=== PATIENT | female | born 1970 | race Caucasian/White ===

== ENCOUNTER → 2019-05-14 | Outpatient (CLI) | payer BC ==
--- NOTE | 2019-05-14 15:27 | RAD ---
Limited abdominal ultrasound 05/14/2019 INDICATION: Right upper quadrant pain. COMPARISON STUDY: None FINDINGS: Limited visualization of the pancreas is unremarkable. Limited visualization of the aorta and IVC is unremarkable. Cholelithiasis is noted within the gallbladder. The gallbladder wall thickened measuring 5-6 mm in diameter. Sonographic Bryant sign is positive per technologist. The liver is diffusely echogenic. The liver is normal in size measuring 14 cm longitudinally. Findings may reflect hepatic steatosis. The common bile duct is nondilated measuring 3 mm in diameter. The right kidney is abnormal in morphology with increased echogenicity within the renal medulla. There is a shadowing stone hyperechoic focus in the inferior right kidney measuring 9 mm in diameter which may represent a small nonobstructing stone. The left kidney also demonstrates hyperechoic medulla. The kidneys are normal in size measuring 10.5 cm in length on the right and 11.3 cm in length on the left. No hydronephrosis or nephrolithiasis is identified. IMPRESSION: 1. Cholelithiasis, with thickening of the gallbladder, and a positive sonographic Bryant's sign according to the technologist. Findings concerning for acute calculus cholecystitis. 2. Increased echogenicity of the bilateral renal medulla. The appearance is nonspecific but can be seen with nephrocalcinosis, with other more rare etiologies including sickle-cell anemia, or infection. 3. Increased echogenicity of the liver. Hepatic steatosis is possible. 4. 9 mm nonobstructing calculus, inferior right kidney. Findings called to the ordering clinician's office at 3:20 PM Electronically signed by: Arian Marti MD (05/14/2019 3:24 PM) [id number]
== END | disposition home or self-care (01) ==
LOC: US 12:54
PROVIDERS: ATTEND Physician Assistant Medical
DX: K80.00 Calculus of gallbladder with acute cholecystitis without obstruction (principal); E83.59 Other disorders of calcium metabolism; N29 Other disorders of kidney and ureter in diseases classified elsewhere
CPT/HCPCS: 76705

== ENCOUNTER → 2020-06-12 | Outpatient (CLI) | payer BC ==
--- NOTE | 2020-06-12 08:43 | RAD ---
INDICATION: Reason: RIGHT FLANK PAIN / Spl. Instructions: / History: COMPARISON: None. TECHNIQUE: Axial CT images obtained through the abdomen and pelvis without contrast. Limited assessment of solid organ structures and vasculature secondary to lack of intravenous contrast.. One or more of the following individualized dose reduction techniques were utilized for this examination: 1. Automated exposure control; 2. Adjustment of the mA and/or kV according to patient size; 3. Use of iterative reconstruction technique. FINDINGS: Linear nodular opacity at right lung base could be atelectasis. Abdominal aorta is not aneurysmal. No intrahepatic bile duct dilation. Postcholecystectomy changes. No peripancreatic fluid collection. Spleen unremarkable. Low-density left adrenal nodule. 9 mm nonobstructive left renal stone. 9 mm right renal stone. Urinary bladder largely decompressed. Prominence of the right renal pelvis with adjacent edema to the fat. Calcifications at the bilateral kidneys which can be seen with medullary nephrocalcinosis. Small fat-containing umbilical hernia. No periappendiceal inflammatory changes. No dilated loops of bowel to suggest obstruction. Degenerative changes of the spine with multilevel central canal and neural foraminal stenosis. Degenerative changes the right hip. IMPRESSION: * Prominence of the right renal pelvis with adjacent edema to the fat. Differential considerations include either intermittent obstruction from the patient's large right renal pelvis stone or infectious etiology from pyelitis. There is also a left-sided renal stone. * No evidence of bowel obstruction or appendicitis. Electronically signed by: Brody Ritter MD (06/12/2020 8:41 AM) [id number]
== END | disposition home or self-care (01) ==
LOC: CT 07:36
PROVIDERS: ATTEND Physician Assistant Medical
DX: N20.0 Calculus of kidney (principal); K42.9 Umbilical hernia without obstruction or gangrene; N29 Other disorders of kidney and ureter in diseases classified elsewhere; M16.11 Unilateral primary osteoarthritis, right hip; M47.9 Spondylosis, unspecified; M48.00 Spinal stenosis, site unspecified
CPT/HCPCS: 74176

== ENCOUNTER → 2022-01-21 | Outpatient (CLI) | payer BC ==
--- NOTE | 2022-01-21 15:36 | RAD ---
EXAM: ULTRASOUND SOFT TISSUE NECK CLINICAL HISTORY: Reason: NECK FULLNESS / Spl. Instructions: / History: COMPARISON: None available. TECHNIQUE: Ultrasound examination of the thyroid gland was performed FINDINGS: Sonographic evaluation of the thyroid gland was performed and evaluated using ACR TI-RADS criteria. The right thyroid lobe measures 3.5 x 1.2 x 1.1 cm. The left thyroid lobe measures 3.8 x 1.1 x 1.4 cm . The isthmus measures 0.2 cm. Thyroid parenchyma is mildly heterogeneous. Nodule #1: Location: Inferior right thyroid lobe Size: 0.4 x 0.4 x 0.3 cm Composition: Solid Echogenicity: Slightly hypoechoic Margins: Smooth Shape: Wider than tall Echogenic foci: None TI-RADS: 4 Nodule #2: Location: At the junction of the inferior right thyroid lobe and isthmus Size: 0.6 x 0.5 x 0.3 cm Composition: Solid Echogenicity: Hypoechoic Margins: Smooth Shape: Wider than tall Echogenic foci: None TI-RADS: 4 IMPRESSION: 1. Heterogeneous thyroid gland. 2. There are 2 TI RADS 4 nodules in the right thyroid lobe measuring up to 0.6 cm. Recommend manageme nt per ACR TI RADS guidelines below. ACR TI-RADS risk category: TR4 (4-6 points): FNA if 1.5 cm, follow-up if 1-1.4 cm in 1, 2, 3, and 5 y ears. Electronically signed by: Marta Espana MD (01/21/2022 3:34 PM) [id number]
== END ==
LOC: US 12:49
PROVIDERS: ATTEND Physician Assistant Medical
DX: E04.2 Nontoxic multinodular goiter (principal); E07.89 Other specified disorders of thyroid
CPT/HCPCS: 76536

== ENCOUNTER → 2022-02-15 | Outpatient (CLI) | payer BC ==
--- NOTE | 2022-02-15 15:53 | RAD ---
EXAMINATION: CT ABDOMEN+PELVIS WO CLINICAL HISTORY: Left upper quadrant abdominal pain, history of kidney stones. TECHNIQUE: Imaging of the abdomen and pelvis was performed without intravenous contrast using standar d technique, scanning from just above the dome of the diaphragm to the symphysis pubis. Unenhanced i maging is limited for the evaluation of some intra-abdominal and pelvic pathology. CT Dose Reduction Employed: One or more of the following individualized dose reduction techniques wer e utilized for this examination: 1. Automated exposure control 2. Adjustment of the mA and/or kV ac cording to patient size 3. Use of iterative reconstruction technique. COMPARISON: 06/12/2020 FINDINGS: Visualized heart and lungs unremarkable. Diffuse hypoattenuation of the hepatic parenchyma, compatible with steatosis. 2 cm hypodense left adr enal lesion, similar to prior study. Cholecystectomy. Pancreas and spleen unremarkable. 1.2 cm calculus in the left renal pelvis with mild pelviectasis and moderate stranding surrounding th e renal pelvis and proximal ureter. No significant hydroureteronephrosis. Additional small nonobstruc tive bilateral renal calculi. Bilateral medullary nephrocalcinosis. Minimally filled urinary bladder suboptimally evaluated. Uterus and ovaries unremarkable on limited e valuation. Pelvic phleboliths. No dilated bowel. Normal appendix. No abdominal aortic or iliac artery aneurysm. Mild thoracolumbar degenerative changes. Degenerative changes in the right hip. IMPRESSION: 1.2 cm calculus in the left renal pelvis with pelviectasis and surrounding inflammatory changes. No s ignificant hydroureteronephrosis. Additional nonobstructive bilateral renal calculi and medullary nephrocalcinosis. Additional nonacute findings as described. Electronically signed by: Manuel Gorman DO (02/15/2022 3:50 PM) [facility]
== END ==
LOC: CT 14:09
PROVIDERS: ATTEND Physician Assistant Medical
DX: N20.0 Calculus of kidney (principal); E27.8 Other specified disorders of adrenal gland; N29 Other disorders of kidney and ureter in diseases classified elsewhere; I86.2 Pelvic varices; M47.815 Spondylosis without myelopathy or radiculopathy, thoracolumbar region; M16.11 Unilateral primary osteoarthritis, right hip; Z87.442 Personal history of urinary calculi
CPT/HCPCS: 74176